=== PATIENT | male | born 1995 | race Two or more races ===

== ENCOUNTER 2016-09-18 07:05 | Emergency (ER) | payer OTHER ==
[2016-09-18] MEDS ORDERED: IPRATROPIUM/ALBUTEROL 0.5-2.5 MG/3 ML AMPUL NEB ONE ×2 (07:09→07:10)
[2016-09-18] MEDS ORDERED: METHYLPREDNISOLONE INJ 125 MG/2 ML SDV IV ONE (07:10)
[2016-09-18] MEDS ORDERED: NORMAL SALINE 1000 ML 1,000 ML IV ONE (07:15)
--- NOTE | 2016-09-18 07:15 | ER Document Report ---
ED General - General Stated Complaint: CHEST PAIN Time Seen by Provider: 09/18/16 07:09 Mode of Arrival: Wheelchair Information source: Patient Cannot obtain history due to: Intoxicated, Uncooperative Notes: 21-year-old male who appears extremely intoxicated presents in respiratory distress. Patient was found by a bystander. Pt having obvious wheezing. - HPI Onset: Just prior to arrival Onset/Duration: Sudden Quality of pain: No pain Severity: Moderate Pain Level: Denies Associated symptoms: Chest pain, Nonproductive cough, Shortness of breath Exacerbated by: Movement Relieved by: Denies Similar symptoms previously: No Recently seen / treated by doctor: No - Related Data Allergies/Adverse Reactions: No Known Allergies Allergy (Verified 09/18/16 07:34) Home Medications: Current Home Medications No Home Medications 09/18/16 [History] Past Medical History - Social History Smoking Status: Unknown if Ever Smoked Cigarette use (# per day): No Chew tobacco use (# tins/day): No Smoking Education Provided: No Family History: Reviewed & Not Pertinent Review of Systems - Review of Systems Notes: PHYSICAL EXAMINATION: GENERAL: Patient is wheezing obviously intoxicated intermittently slumped over in wheelchair HEAD: Atraumatic, normocephalic. EYES: Pupils equal round and reactive to light, extraocular movements intact, sclera anicteric, conjunctiva are normal. ENT: Nares patent, oropharynx clear without exudates. Moist mucous membranes. NECK: Normal range of motion, supple without lymphadenopathy LUNGS: Wheezing is coarse inspiratory expiratory HEART: tachycardic ABDOMEN: Soft, nontender, nondistended abdomen. No guarding, no rebound. No masses appreciated. Musculoskeletal: Normal range of motion, no pitting or edema. No cyanosis. NEUROLOGICAL: GCS 15 but obviously confused PSYCH: intoxicated SKIN: mild echymosis noted on the chest -: Yes ROS unobtainable due to patient's medical condition Physical Exam - Vital signs Vitals: Resp 10 L 09/18/16 07:05 Course - Re-evaluation Re-evalutation: 09/18/16 07:15 Patient appears extremely intoxicated at 7:00 in the morning, he is noted to be wheezing and was given duo nebs 09/18/16 08:28 Patient is no longer wheezing, her alcohol level is 220, he is sleeping comfortably and is on the monitor. 09/18/16 10:50 Patient is now alert oriented, he is awake. I will discharge him when there is someone that can safely take him home After performing a Medical Screening Examination, I estimate there is LOW risk for ACUTE CORONARY SYNDROME, RESPIRATORY FAILURE, SEPSIS OR MENINGITIS, thus I consider the discharge disposition reasonable. I have reevaluated this patient multiple times and no significant life threatening changes are noted. The patient and I have discussed the diagnosis and risks, and we agree with discharging home with close follow-up. We also discussed returning to the Emergency Department immediately if new or worsening symptoms occur. We have discussed the symptoms which are most concerning (e.g., changing or worsening pain, trouble swallowing or breathing, neck stiffness, fever) that necessitate immediate return. - Vital Signs Vital signs: Temp Pulse Resp BP Pulse Ox 14 117/63 100 09/18/16 10:01 09/18/16 10:01 09/18/16 10:01 - Laboratory Result Diagrams: 09/18/16 07:10 09/18/16 07:10 Laboratory results interpreted by me: 09/18/16 09/18/16 07:10 07:10 Lymphocytes % 48.7 H Sodium 149.0 H Chloride 108 H Carbon Dioxide 18 L Anion Gap 23 H Total Protein 8.6 H Albumin 5.3 H Discharge - Discharge Clinical Impression: Wheezing Alcohol intoxication Qualifiers: Complication of substance-induced condition: uncomplicated Qualified Code(s): F10.920 - Alcohol use, unspecified with intoxication, uncomplicated Condition: Stable Disposition: HOME, SELF-CARE Instructions: Acute Alcohol Intoxication ([facility]) Additional Instructions: Follow up with your physician tomorrow for further care or return to the ED IMMEDIATELY if symptoms worsen or new concerns occur. If you cannot afford to follow up with your primary care physician a list of low cost clinics have been provided at the end of your discharge papers as well.
[2016-09-18 07:43] LABS: ABSOLUTE EOSINOPHILS # (AUTO) 0.2 10^3/uL (0.0-0.6); ABSOLUTE LYMPHOCYTES (AUTO) 3.9 10^3/uL (0.5-4.7); ABSOLUTE MONOCYTES (AUTO) 0.5 10^3/uL (0.1-1.4); ABSOLUTE NEUT (AUTO) 3.4 10^3/uL (1.7-8.2); BASOPHILS % (AUTO) 0.4 % (0-2); EOSINOPHILS % (AUTO) 2.1 % (0-6); HEMATOCRIT 47.8 % (37.9-51.0); HGB HCT DIFFERENCE 0.2; LYMPHOCYTES % (AUTO) 48.7 % (13-45); MEAN CORPUSCULAR HEMOGLOBIN 29.9 pg (27.0-33.4); MEAN CORPUSCULAR HGB CONC 33.6 g/dL (32.0-36.0); MEAN CORPUSCULAR VOLUME 89 fl (80-97); MONOCYTES % (AUTO) 6.4 % (3-13); RED BLOOD COUNT 5.36 10^6/uL (4.35-5.55); RED CELL DISTRIBUTION WIDTH 13.8 % (11.5-14.0); SEGMENTED NEUTROPHILS % (AUTO) 42.4 % (42-78)
--- NOTE | 2016-09-18 07:47 | RADIOLOGY REPORT (SQ) ---
EXAM DESCRIPTION: CHEST SINGLE VIEW COMPLETED DATE/TIME: 09/18/2016 7:34 am REASON FOR STUDY: sob COMPARISON: None. EXAM PARAMETERS: NUMBER OF VIEWS: One view. TECHNIQUE: Single frontal radiographic view of the chest acquired. RADIATION DOSE: NA LIMITATIONS: None. FINDINGS: LUNGS AND PLEURA: No opacities, masses or pneumothorax. No pleural effusion. MEDIASTINUM AND HILAR STRUCTURES: No masses. Contour normal. HEART AND VASCULAR STRUCTURES: Heart normal in size. Normal vasculature. BONES: No acute findings. HARDWARE: None in the chest. OTHER: No other significant finding. IMPRESSION: NO ACUTE RADIOGRAPHIC FINDING IN THE CHEST. TECHNICAL DOCUMENTATION: JOB ID: [id number]
[2016-09-18 08:02] LABS: ALANINE AMINOTRANSFERASE 34 U/L (21-72); ALBUMIN 5.3 g/dL (3.5-5.0); ALCOHOL 220 mg/dL (NONE DETECTED); ALKALINE PHOSPHATASE 108 U/L (38-126); ASPARTATE AMINO TRANSFERASE 33 U/L (17-59); BILIRUBIN,DIRECT 0.2 mg/dL (0.0-0.4); BILIRUBIN,TOTAL 0.5 mg/dL (0.2-1.3); BLOOD UREA NITROGEN 9 mg/dL (7-20); CALCIUM 9.7 mg/dL (8.4-10.2); CARBON DIOXIDE 18 mmol/L (22-30); CHLORIDE 108 mmol/L (98-107); CREATININE RESULT 0.76 mg/dL (0.52-1.25); GLUCOSE 92 mg/dL (75-110); POTASSIUM 3.7 mmol/L (3.6-5.0); TOTAL PROTEIN 8.6 g/dL (6.3-8.2)
[2016-09-18 08:03] LABS: ANION GAP 23 (5-19)
[2016-09-18 10:11] LABS: URINE BARBITURATES SCREEN NEGATIVE; URINE METHADONE SCREEN NEGATIVE; URINE OPIATES LOW NEGATIVE; URINE PHENCYCLIDINE SCREEN NEGATIVE
[2016-09-18 12:02] VITALS: BP 118/72
== END 2016-09-18 11:55 | disposition home or self-care (01) ==
LOC: ER 07:05
DX: F10.120 Alcohol abuse with intoxication, uncomplicated (principal); R07.9 Chest pain, unspecified; R06.2 Wheezing; R05 Cough; R06.02 Shortness of breath; R58 Hemorrhage, not elsewhere classified
CPT/HCPCS: 94640; 99285; 96361; 96374; 36415; 80307 ×2; 85025; 80053; 71010; J2930; J7030; J7620